=== PATIENT | male | born 1940 | race Caucasian/White ===

== ENCOUNTER 2020-10-05 07:51 | Day surgery (SDC) | payer MEDICARE ==
[~2020-10-05] VITALS: Ht 175.3 cm; Wt 85.4 kg
[2020-10-05] VITALS (9 sets, daily range): BP systolic 120–133; BP diastolic 51–63
[2020-10-05] MEDS ORDERED: normal saline 1,000 ML IV SCH ×2 (08:15→11:35)
[2020-10-05] MEDS ORDERED: diphenhydrAMINE 25mg capsule PO PRN (08:15)
[2020-10-05] MEDS ORDERED: TERA2CAP4 PO (08:40)
[2020-10-05] MEDS ORDERED: FURO40TA4 PO (08:40)
[2020-10-05] MEDS ORDERED: POTA-82 PO (08:40)
[2020-10-05] MEDS ORDERED: AMLO10TA13 PO (08:40)
[2020-10-05] MEDS ORDERED: RIVA20TA PO (08:40)
[2020-10-05] MEDS ORDERED: LOSA100T57 PO (08:40)
[2020-10-05] MEDS ORDERED: FLEC150T2 PO (08:40)
[2020-10-05] MEDS ORDERED: LORA-512 PO (08:44)
[2020-10-05] MEDS ORDERED: MULT-1085 PO (08:44)
[2020-10-05] MEDS ORDERED: DIPH25CA52 PO (08:44)
[2020-10-05 09:11] LABS: BASOPHILS % (AUTO) 0.5 % (0-1); EOSINOPHILS # (AUTO) 0.4 X10'3 (0-0.9); EOSINOPHILS % (AUTO) 4.8 % (0-6); HEMATOCRIT 40.2 % (42.0-52.0); HEMOGLOBIN 13.3 g/dl (14.0-17.9); LYMPHOCYTES # (AUTO) 1.7 X10'3 (1.1-4.8); LYMPHOCYTES % (AUTO) 22.9 % (21-51); MEAN CORPUSCULAR HEMOGLOBIN 30.7 PG (27.0-31.0); MEAN CORPUSCULAR HGB CONC 33.2 g/dL (33.0-36.5); MEAN CORPUSCULAR VOLUME 92.4 FL (78-98); MEAN PLATELET VOLUME 9.3 FL (7.4-10.4); MONOCYTES # (AUTO) 0.7 X10'3 (0-0.9); NEUTROPHILS # (AUTO) 4.6 X10'3 (1.8-7.7); NEUTROPHILS % (AUTO) 62.8 % (42-75); PLATELET COUNT 184 X10'3 (140-440); RED BLOOD COUNT 4.35 X10'6 (4.70-6.10); RED CELL DISTRIBUTION WIDTH 14.5 % (11.5-14.5); WHITE BLOOD COUNT 7.3 X10'3 (4.5-11.0)
[2020-10-05] MEDS ORDERED: iohexol 350MG/ML 100ml bottle IV ONE (09:15)
[2020-10-05] MEDS ORDERED: midazolam 1 mg/ML 2ml injection ONE (09:15)
[2020-10-05] MEDS ORDERED: iohexol 350 MG/ML 50ML vial IV ONE (09:15)
[2020-10-05] MEDS ORDERED: fentaNYL/PF 50MCG/1 ML 2ML syringe ONE (09:15)
[2020-10-05] MEDS ORDERED: heparin 1,000unit/ml 10ml vial 10 ML ONE (09:15)
[2020-10-05] MEDS ORDERED: LIDOcaine 1% (10mg/ml)w/preservative injection 20ml MDV ONE (09:15)
[2020-10-05 09:18] LABS: ALBUMIN 2.6 G/DL (3.4-5.0); ANION GAP 10 (8-16); BLOOD UREA NITROGEN 17 MG/DL (7-18); BUN/CREATININE RATIO 18.1 (5.4-32.0); CALCIUM 8.8 MG/DL (8.5-10.1); CHLORIDE 111 MMOL/L (99-107); CREATININE 0.94 MG/DL (0.60-1.10); GLUCOSE 90 MG/DL (70-104); POTASSIUM 3.6 MMOL/L (3.5-5.1); SODIUM 145 MMOL/L (135-145); eGFR 77 ML/MIN
[2020-10-05] MEDS ORDERED: HYDROcodone/acetaminophen 5mg/325mg tablet PO PRN (11:35)
[2020-10-05] MEDS ORDERED: HYDROcodone/acetaminophen 10/325mg tab PO PRN (11:35)
[2020-10-05] MEDS ORDERED: proCHLORperazine 10 MG/2 ml inj IV PRN (11:35)
[2020-10-05] MEDS ORDERED: ondansetron/PF 4mg/2ml inj IV PRN (11:35)
== END 2020-10-05 14:35 | disposition home or self-care (01) ==
LOC: SSTAY O 07:51
PROVIDERS: ATTEND Internal Medicine Cardiovascular Disease
DX: R06.09 Other forms of dyspnea (principal); R07.89 Other chest pain; I20.0 Unstable angina; I27.20 Pulmonary hypertension, unspecified; I48.0 Paroxysmal atrial fibrillation; I10 Essential (primary) hypertension; E78.5 Hyperlipidemia, unspecified; I44.0 Atrioventricular block, first degree; I05.2 Rheumatic mitral stenosis with insufficiency; I47.1 Supraventricular tachycardia; I42.9 Cardiomyopathy, unspecified; G47.30 Sleep apnea, unspecified; K21.9 Gastro-esophageal reflux disease without esophagitis; Z98.890 Other specified postprocedural states; Z96.641 Presence of right artificial hip joint; Z88.8 Allergy status to other drugs, medicaments and biological substances; Z79.899 Other long term (current) drug therapy; Z82.3 Family history of stroke
CPT/HCPCS: 36415; 80048; 83735; 85025; 85610; 93005; 93460; 99152; 99153; C1760; C1769; C1894; J1644; J2001; J2250; J3010; J7030; Q0163; Q9967; A6258; C1751

== ENCOUNTER 2021-02-01 08:02 | Day surgery (SDC) | payer MEDICARE ==
[2021-02-01] VITALS (7 sets, daily range): BP systolic 111–127; BP diastolic 41–62
[~2021-02-01] VITALS: Ht 175.3 cm; Wt 86.9 kg
[~2021-02-01 08:02] MED LIST: AMLO10TA13 PO; DIPH25CA52 PO; FLEC150T2 PO; FURO40TA4 PO; LORA-512 PO; LOSA100T57 PO; MULT-1085 PO; POTA-82 PO; RIVA20TA PO; TERA2CAP4 PO
[2021-02-01] MEDS ORDERED: cefazolin/dext.iso 2gm/50ml 50 ML IV ONE (08:25)
[2021-02-01] MEDS ORDERED: VANCOMYCIN 1,500MG inj. 1,500 MG in normal saline 500ml IV soln 300 ML IV ONE (08:30)
[2021-02-01 08:53] LABS: BASOPHILS % (AUTO) 0.6 % (0-1); EOSINOPHILS # (AUTO) 0.4 X10'3 (0-0.9); EOSINOPHILS % (AUTO) 6.3 % (0-6); HEMATOCRIT 39.7 % (42.0-52.0); HEMOGLOBIN 13.5 g/dl (14.0-17.9); LYMPHOCYTES # (AUTO) 1.5 X10'3 (1.1-4.8); LYMPHOCYTES % (AUTO) 24.3 % (21-51); MEAN CORPUSCULAR HEMOGLOBIN 31.4 PG (27.0-31.0); MEAN CORPUSCULAR HGB CONC 34.1 g/dL (33.0-36.5); MEAN CORPUSCULAR VOLUME 91.9 FL (78-98); MEAN PLATELET VOLUME 8.5 FL (7.4-10.4); MONOCYTES # (AUTO) 0.6 X10'3 (0-0.9); MONOCYTES % (AUTO) 9.7 % (2-12); NEUTROPHILS # (AUTO) 3.7 X10'3 (1.8-7.7); NEUTROPHILS % (AUTO) 59.1 % (42-75); PLATELET COUNT 191 X10'3 (140-440); RED BLOOD COUNT 4.31 X10'6 (4.70-6.10); RED CELL DISTRIBUTION WIDTH 14.4 % (11.5-14.5); WHITE BLOOD COUNT 6.2 X10'3 (4.5-11.0)
[2021-02-01 09:10] LABS: ALBUMIN 3.9 G/DL (3.4-5.0); ANION GAP 11 (8-16); BLOOD UREA NITROGEN 17 MG/DL (7-18); BUN/CREATININE RATIO 16.7 (5.4-32.0); CALCIUM 9.3 MG/DL (8.5-10.1); CHLORIDE 107 MMOL/L (99-107); CREATININE 1.02 MG/DL (0.60-1.10); GLUCOSE 101 MG/DL (70-104); MAGNESIUM 2.2 MG/DL (1.5-2.4); POTASSIUM 3.6 MMOL/L (3.5-5.1); SODIUM 142 MMOL/L (135-145); TOTAL CARBON DIOXIDE 24.3 MMOL/L (24-32); eGFR 70 ML/MIN
[2021-02-01] MEDS ORDERED: vancomycin 1,000mg inj ONE (10:29)
[2021-02-01] MEDS ORDERED: midazolam 1 mg/ML 2ml injection ONE ×2 (10:29→11:29)
[2021-02-01] MEDS ORDERED: LIDOCAINE 1%/EPI 1:100,000 inj. 10 ML multi-dose vial ONE (10:30)
[2021-02-01] MEDS ORDERED: LIDOcaine 1% w/EPI 1:100,000 30ml vial (MDV) ONE (10:32)
[2021-02-01] MEDS ORDERED: HYDROmorphone 1 mg/ml syringe ONE (11:41)
[2021-02-01] MEDS ORDERED: normal saline 1000ml 1,000 ML IV SCH (12:50)
== END 2021-02-01 14:25 | disposition home or self-care (01) ==
LOC: SSTAY O 08:02
PROVIDERS: ATTEND Internal Medicine Cardiovascular Disease
DX: I49.5 Sick sinus syndrome (principal); I44.0 Atrioventricular block, first degree; I48.0 Paroxysmal atrial fibrillation; I10 Essential (primary) hypertension; E78.5 Hyperlipidemia, unspecified; Z79.899 Other long term (current) drug therapy; I47.1 Supraventricular tachycardia; I42.9 Cardiomyopathy, unspecified; I05.2 Rheumatic mitral stenosis with insufficiency; G47.30 Sleep apnea, unspecified; K21.9 Gastro-esophageal reflux disease without esophagitis; Z95.2 Presence of prosthetic heart valve; Z98.890 Other specified postprocedural states; Z96.641 Presence of right artificial hip joint; Z88.8 Allergy status to other drugs, medicaments and biological substances; Z91.09 Other allergy status, other than to drugs and biological substances; Z82.3 Family history of stroke
CPT/HCPCS: 33208; 36415; 71045; 80048; 83735; 85025; 85610; 93005; 99152; 99153; C1785; C1894; C1898; J1170; J2250; J3370; J3490; A4565; A4620; A6258; C1786

== ENCOUNTER 2022-05-02 13:37 | Outpatient (CLI) | payer MEDICARE ==
[2022-05-02] MEDS ORDERED: GADOTERATE MEGLUMINE 7.5 MMOL/15 ML VIAL IV ONE (16:20)
== END 2022-05-02 23:59 | disposition home or self-care (01) ==
LOC: RAD 13:37
PROVIDERS: ATTEND Family Medicine
DX: M47.26 Other spondylosis with radiculopathy, lumbar region (principal); M48.07 Spinal stenosis, lumbosacral region; M47.818 Spondylosis without myelopathy or radiculopathy, sacral and sacrococcygeal region; M48.04 Spinal stenosis, thoracic region; M51.16 Intervertebral disc disorders with radiculopathy, lumbar region; M53.3 Sacrococcygeal disorders, not elsewhere classified; M25.78 Osteophyte, vertebrae; M12.88 Other specific arthropathies, not elsewhere classified, other specified site
CPT/HCPCS: 72158; A9575